=== PATIENT | female | born 1980 | race Caucasian/White ===

== ENCOUNTER 2021-02-28 17:20 | Emergency (ER) | payer OTHER ==
[~2021-02-28 17:20] MED LIST: BACTRIM DS TAB1 EACH PO; NORCO 5-325 TA1 EACH PO; ZOFRAN4 MG PO; ZOFRAN8 MG PO
[2021-02-28 20:27] LABS: BASOPHIL 0.8 % (0-2); EOSINOPHIL 3.1 % (0-5); HCT 37.8 % (37.0-47.0); HGB 12.7 g/dl (12.5-16.0); LYMPHOCYTE 30.5 % (15-48); MCH 29.1 pg (25.0-31.0); MCHC 33.6 g/dL (32.0-36.0); MCV 86.7 fL (78.0-100.0); MONOCYTE 11.3 % (0-12); MPV 11.3 fL (6.0-9.5); NRBC 0; PLT 267 K/uL (150-400); RBC 4.36 M/uL (4.20-5.40); RDW 13.2 % (11.5-14.0); WBC 7.9 K/uL (4.0-10.5)
[2021-02-28 20:52] LABS: LACTIC ACID 1.1 mmol/L (0.4-1.9)
[2021-02-28 20:54] LABS: ALBUMIN 3.1 g/dL (3.4-5.0); ALKALINE PHOSHATASE 67 U/L (46-116); ALT 30 U/L (14-59); AST 11 U/L (15-37); BILIRUBIN - TOTAL 0.3 mg/dL (0.2-1.0); BUN 7 mg/dL (7-18); BUN/CREAT RATIO (CALC) 11.9 RATIO; C-REACTIVE PROTEIN >18.00 mg/dL (<=0.90); CHLORIDE 105 mmol/L (98-107); CO2 (BICARBONATE) 20 mmol/L (21-32); CREATININE 0.59 mg/dL (0.51-0.95); GLOBULIN (CALCULATION) 4.4 g/dL; GLUCOSE 79 mg/dL (74-106); POTASSIUM 4.4 mmol/L (3.5-5.1); TOTAL PROTEIN 7.5 g/dL (6.4-8.2)
[2021-03-01] MEDS ORDERED: XARELTO15 MG PO (01:14)
== END 2021-03-01 01:45 | disposition home or self-care (01) ==
LOC: FER 17:20
PROVIDERS: Emergency Medicine Emergency Medical Services
DX: I82.622 Acute embolism and thrombosis of deep veins of left upper extremity (principal); I10 Essential (primary) hypertension
CPT/HCPCS: 36415; 80053; 83605; 84145; 85025; 85379; 86140; 87040; 93971; J1170; J2550